=== PATIENT | female | born 1990 | race Caucasian/White ===

== ENCOUNTER 2018-08-01 05:44 | Inpatient (IN) | payer MEDICAID ==
[2018-08-01] MEDS ORDERED: LACTATED RINGER'S 1,000 ML IV (06:12)
[2018-08-01] MEDS ORDERED: LIDOCAINE 1% (MPF) 30 ML INJ INJ (06:30)
[2018-08-01] MEDS ORDERED: BUTORPHANOL 2 MG INJ IV (06:30)
[2018-08-01] MEDS ORDERED: OXYTOCIN 30 UNITS/LR 500 ML IV (06:30)
[2018-08-01] MEDS ORDERED: METHYLERGONOVINE 0.2 MG INJ IM (06:30)
[2018-08-01] MEDS ORDERED: MISOPROSTOL 200 MCG TAB PR (06:30)
[2018-08-01] MEDS ORDERED: CARBOPROST 250 MCG INJ IM (06:30)
[2018-08-01] MEDS ORDERED: OXYCODONE/ASPIRIN (4.88/325) TAB PO ×3 (06:30→10:00)
[2018-08-01 06:34] LABS: ADD MAN DIFF? NO
[2018-08-01 06:37] LABS: BASOPHILS % 0.3 % (0.0-2.0); EOSINOPHILS % 0.3 % (0.0-7.0); HEMATOCRIT 40.3 % (37.0-47.0); HEMOGLOBIN 13.5 g/dl (12.0-16.0); LYMPHOCYTES # 3.6 10^3/ul (0.8-2.9); LYMPHOCYTES % 30.9 % (15.0-51.0); MEAN CORPUSCULAR HEMOGLOBIN 30.4 pg (29.0-33.0); MEAN CORPUSCULAR HGB CONC 33.5 g/dl (32.0-37.0); MEAN CORPUSCULAR VOLUME 90.8 fl (82.0-101.0); MEAN PLATELET VOLUME 11.2 fl (7.4-10.4); MONOCYTE # 0.9 10^3/ul (0.3-0.9); MONOCYTES % 7.8 % (0.0-11.0); NEUTROPHILS % 60.2 % (39.0-77.0); PLATELET COUNT 180 10^3/UL (140-415); RED BLOOD COUNT 4.44 10^6/ul (4.20-5.40); RED CELL DISTRIBUTION WIDTH 12.8 % (11.5-14.5)
[2018-08-01 06:37] LABS: WHITE BLOOD COUNT 11.6 10^3/ul (4.8-10.8)
[2018-08-01] MEDS: OXYTOCIN 30 UNITS/LR 500 ML IV ×3 (06:50→10:28)
[2018-08-01] MEDS: IBUPROFEN 600 MG TAB PO ×4 (06:50→23:51)
[2018-08-01 06:56] LABS: INR 0.86; PROTIME 11.8 Sec (11.9-14.9); PT RATIO 0.9
[2018-08-01 07:33] LABS: HEPATITIS B SURFACE ANTIGEN NEGATIVE (NEGATIVE)
[2018-08-01 07:54] LABS: ADD UMIC YES; UR ASCORBIC ACID NEGATIVE (NEGATIVE); UR BILIRUBIN (Dip) NEGATIVE (NEGATIVE); UR BLOOD (Dip) 1+ mg/dL (NEGATIVE); UR CLARITY CLEAR (CLEAR); UR COLOR STRAW (YELLOW); UR GLUCOSE (Dip) NEGATIVE (NEGATIVE); UR KETONES (Dip) NEGATIVE (NEGATIVE); UR LEUKOCYTE ESTERASE (Dip) 2+ Leu/ul (NEGATIVE); UR NITRITE (Dip) NEGATIVE (NEGATIVE); UR RBC 1 /HPF (0-5); UR SPECIFIC GRAVITY (Dip) 1.005 (1.003-1.030); UR SQUAMOUS EPITHELIAL CELL FEW /HPF (FEW); UR TOTAL PROTEIN (Dip) NEGATIVE (NEGATIVE); UR UROBILINOGEN (Dip) NEGATIVE (NEGATIVE); UR WBC 9 /HPF (0-5)
[2018-08-01 07:59] LABS: ALANINE AMINOTRANSFERASE 22 IU/L (13-69); ALBUMIN 3.9 g/dl (3.3-4.9); ALBUMIN/GLOBULIN RATIO 1.21; ALKALINE PHOSPHATASE 236 IU/L (42-121); ANION GAP 11 (5-13); ASPARTATE AMINO TRANSFERASE 22 IU/L (15-46); BILIRUBIN,INDIRECT 0.1 mg/dl (0-1.1); BILIRUBIN,TOTAL 0.1 mg/dl (0.2-1.3); BLOOD UREA NITROGEN 10 mg/dl (7-20); CALCIUM 8.6 mg/dl (8.4-10.2); CARBON DIOXIDE 21 mmol/L (21-31); CHLORIDE 108 mmol/L (97-110); CREATININE 0.59 mg/dl (0.44-1.00); Estimated GFR > 60 mL/min (>60); GLUCOSE 88 mg/dl (70-220); POTASSIUM 4.1 mmol/L (3.5-5.1); SODIUM 140 mmol/L (135-144); TOTAL PROTEIN 7.1 g/dl (6.1-8.1); URIC ACID 4.7 mg/dl (3.1-7.9)
[2018-08-01] MEDS ORDERED: ACETAMINOPHEN 325 MG TAB PO (10:00)
[2018-08-01] MEDS ORDERED: HYDROCODONE/APAP (5/325) TAB PO (10:00)
[2018-08-01] MEDS ORDERED: ONDANSETRON 4 MG INJ IV (10:00)
[2018-08-01] MEDS: LANOLIN 7 GM TUBE TOP (10:14)
[2018-08-01] MEDS: HYDROCODONE/APAP (5/325) TAB PO (10:15)
[2018-08-01] MEDS: BENZOCAINE 20% 56 ML SPRAY TOP (10:15)
[2018-08-01] MEDS: WITCH HAZEL/GLYCERIN PAD PR (10:15)
[2018-08-01] MEDS ORDERED: AMPICILLIN 1 GM/NS (PMX) 50 ML IV (10:30)
[2018-08-01] MEDS: AMPICILLIN 2 GM/NS (PMX) 100 ML IV (10:30)
[2018-08-01] MEDS ORDERED: IBUPROFEN 600 MG TAB PO (12:00)
[2018-08-01 15:38] LABS: RAPID PLASMA REAGIN NONREACTIVE (NR)
[2018-08-01] MEDS: SENNA/DOCUSATE NA (8.6MG/50MG) TAB PO (20:28)
[2018-08-02] MEDS: IBUPROFEN 600 MG TAB PO ×4 (05:53→23:25)
[2018-08-02 07:27] LABS: ADD MAN DIFF? NO
[2018-08-02 07:50] LABS: WHITE BLOOD COUNT 10.7 10^3/ul (4.8-10.8)
[2018-08-02 07:50] LABS: BASOPHIL # 0.1 10^3/ul (0.0-0.1); BASOPHILS % 0.7 % (0.0-2.0); EOSINOPHILS # 0.1 10^3/ul (0.0-0.5); EOSINOPHILS % 0.5 % (0.0-7.0); HEMATOCRIT 36.8 % (37.0-47.0); HEMOGLOBIN 12.3 g/dl (12.0-16.0); LYMPHOCYTES # 3.8 10^3/ul (0.8-2.9); LYMPHOCYTES % 35.4 % (15.0-51.0); MEAN CORPUSCULAR HEMOGLOBIN 30.4 pg (29.0-33.0); MEAN CORPUSCULAR HGB CONC 33.4 g/dl (32.0-37.0); MEAN CORPUSCULAR VOLUME 91.1 fl (82.0-101.0); MEAN PLATELET VOLUME 11.8 fl (7.4-10.4); MONOCYTE # 0.7 10^3/ul (0.3-0.9); MONOCYTES % 6.6 % (0.0-11.0); NEUTROPHILS % 56.1 % (39.0-77.0); PLATELET COUNT 164 10^3/UL (140-415); RED BLOOD COUNT 4.04 10^6/ul (4.20-5.40); RED CELL DISTRIBUTION WIDTH 12.9 % (11.5-14.5)
[2018-08-02] MEDS: SENNA/DOCUSATE NA (8.6MG/50MG) TAB PO ×2 (08:24→20:16)
[2018-08-03] MEDS: IBUPROFEN 600 MG TAB PO ×2 (05:27→11:26)
[2018-08-03] MEDS: SENNA/DOCUSATE NA (8.6MG/50MG) TAB PO (08:28)
[2018-08-03] MEDS: MEASLES,MUMPS,RUBELLA VACCINE INJ SC* (09:10)
== END 2018-08-03 14:43 | disposition home or self-care (01) | DRG 807 ==
LOC: OBT 05:44 → L-D 05:44 → OBT 06:15 → L-D 06:15 → PP1 08:40
PROC: 10E0XZZ Delivery of Products of Conception, External Approach (ICD-10-PCS; principal; 2018-08-01)
DX: O69.81X0 Labor and delivery complicated by cord around neck, without compression, not applicable or unspecified (principal); Z37.0 Single live birth; Z3A.39 39 weeks gestation of pregnancy
CPT/HCPCS: 80053; 81001; 84560; 85025; 85384; 85610; 85730; 86592; 86850; 86900; 86901; 87340

== ENCOUNTER 2019-01-05 06:13 | Day surgery (SDC) | payer MEDICAID ==
[2019-01-05] MEDS: LACTATED RINGER'S 1,000 ML IV* (05:30)
[2019-01-05] MEDS ORDERED: LIDOCAINE 2% (SDV) 5 ML INJ (07:00)
[2019-01-05] MEDS: ACETAMINOPHEN 500 MG TAB PO (07:22)
[2019-01-05] MEDS ORDERED: FENTAnyl 50 MCG/ML VIAL IV ×2 (07:30)
[2019-01-05] MEDS ORDERED: FAMOTIDINE 20 MG INJ (07:30)
[2019-01-05] MEDS ORDERED: HYDROmorphONE 1 MG/5 ML IV SYRINGE IV (07:30)
[2019-01-05] MEDS ORDERED: PROPOFOL 40 ML (07:30)
[2019-01-05] MEDS ORDERED: LABETALOL HCL 20MG INJ IV (07:30)
[2019-01-05] MEDS ORDERED: morphine (1 MG/ML) 10ML SYRINGE IV ×2 (07:30)
[2019-01-05] MEDS ORDERED: DIPHENHYDRAMINE 50 MG INJ IV (07:30)
[2019-01-05] MEDS ORDERED: OXYCODONE/ACETAMINOPHEN (5/325) TAB PO ×2 (07:30)
[2019-01-05] MEDS ORDERED: ALBUTEROL 0.083% (NEB) 2.5 MG/3 ML AMP HHN (07:30)
[2019-01-05] MEDS ORDERED: MIDAZOLAM 1 MG/ML 2 ML INJ (07:30)
[2019-01-05] MEDS ORDERED: ROCURONIUM 50 MG INJ (07:31)
[2019-01-05] MEDS ORDERED: ONDANSETRON 4 MG INJ (07:31)
[2019-01-05] MEDS ORDERED: CEFAZOLIN 1 GM INJ (07:31)
[2019-01-05] MEDS ORDERED: FENTAnyl 50 MCG/ML VIAL (07:31)
[2019-01-05] MEDS: CEFAZOLIN 2 GM/50 ML (PMX) 50 ML IVPB (07:40)
[2019-01-05] MEDS ORDERED: SUGAMMADEX SODIUM 200 MG/2 ML VIAL IV (08:00)
[2019-01-05] MEDS: BUPIVACAINE 0.25%/EPI (SDV) 30 ML INJ (08:14)
[2019-01-05] MEDS ORDERED: KETOROLAC 30 MG INJ (08:15)
[2019-01-05] MEDS: ONDANSETRON 4 MG INJ IV (09:01)
[2019-01-05] MEDS: MEPERIDINE 25 MG INJ IV (09:01)
[2019-01-05] MEDS: HYDROmorphONE 1 MG/5 ML IV SYRINGE IV ×2 (09:14→09:22)
== END 2019-01-05 10:40 | disposition home or self-care (01) ==
LOC: SDS 06:13
DX: Z30.2 Encounter for sterilization (principal)
CPT/HCPCS: 59151; 88302